=== PATIENT | male | born 1950 | race Caucasian/White ===

== ENCOUNTER 2017-06-19 14:09 | Inpatient (IN) | payer MEDICARE ==
[~2017-06-19] VITALS: Ht 165.1 cm; Wt 51.7 kg
--- NOTE | 2017-06-19 14:09 | NUR ---
[id number] FROM [facility]: SEVERE SOB, HYPOXIA ~ 1 HR DIRECTOR NURSING SERVICE ALOC
[2017-06-19] MEDS ORDERED: methylPREDNISolone SOD SUCC 125 MG/2ML VIAL ONE (14:19)
[2017-06-19] MEDS ORDERED: IPRATROPIUM NEB FS 0.5 MG/2.5 ML AMPUL.NEB ONE ×2 (14:19→14:29)
[2017-06-19] MEDS ORDERED: IV NS 0.9% 1,000 ML BAG IV ONE ×2 (14:30→15:00)
[2017-06-19] MEDS ORDERED: IPRATROPIUM NEB FS 0.5 MG/2.5 ML AMPUL.NEB NEB ONE (14:30)
[2017-06-19] MEDS ORDERED: methylPREDNISolone SOD SUCC 125 MG/2ML VIAL IV ONE (14:30)
[2017-06-19 14:35] LABS: BASOPHILS % (AUTO) 0.2 % (0.0-2.0); HEMATOCRIT 40 % (39-51); HEMOGLOBIN 13.4 g/dL (13.5-17.5); LYMPHOCYTES # (AUTO) 0.1 /CMM (0.8-4.8); LYMPHOCYTES % (AUTO) 2.9 % (20.0-44.0); MEAN CORPUSCULAR HGB CONC 33 g/dl (31.0-36.0); MEAN CORPUSCULAR VOLUME 108 fL (80-96); MONOCYTES # (AUTO) 0.3 /CMM (0.1-1.30); MONOCYTES % (AUTO) 6.8 % (2.0-12.0); NEUTROPHILS # (AUTO) 4.5 /CMM (1.8-8.9); NEUTROPHILS % (AUTO) 90.1 % (43.0-81.0); PLATELET COUNT (AUTO) 226 /CMM (150-450); RDW COEFFICIENT OF VARIATION 12.5 (11.5-15.0); RED BLOOD CELL COUNT(AUTO) 3.75 MIL/uL (4.5-6.0); WHITE BLOOD COUNT (AUTO) 4.9 K/uL (4.3-11.0)
[2017-06-19 14:39] LABS: ABG BASE EXCESS 3.2 mmol/L; ABG PH 7.438 (7.350-7.450); ABG PO2 66.7 mmHg (75.0-100.0); AaDO2 604.3 mmHg; COHb 0.4 % (0.5-1.5); MetHb 0.6 % (0.0-1.5); O2Hb 92.1 % (94.0-97.0); SITE, ABG Left Radial; VENT MODE, BG non rebreather 100% 15L
[2017-06-19 14:48] LABS: INR 1.1 (0.85-1.15)
[2017-06-19 14:49] LABS: CALCIUM, SERUM 8.5 mg/dL (8.5-10.1); CREATININE 0.9 mg/dL (0.6-1.3); POTASSIUM 4.4 mmol/L (3.5-5.1)
[2017-06-19 14:52] LABS: TROPONIN I 0.025 ng/mL (0.00-0.056)
[2017-06-19 14:59] LABS: APPEARANCE,URINE Clear (CLEAR); BILIRUBIN,URINE Negative (NEGATIVE); BLOOD, URINE Negative Ery/uL (NEGATIVE); COLOR,URINE Yellow (YELLOW); KETONES,URINE Negative (NEGATIVE); LEUKOCYTE ESTERASE ,URINE Negative (NEGATIVE); NITRITE, URINE Negative (NEGATIVE); PH,URINE 8.5 (5.0-8.0); PROTEIN,URINE 30 mg/dl (NEGATIVE); UGLUCOSE Negative (NEGATIVE)
[2017-06-19] MEDS ORDERED: VANCOMYCIN 1 GM in IV D5W 250 ML IV ONE (15:00)
[2017-06-19] MEDS: CEFEPIME 1 GM in IV D5W 50 ML IV ONE (15:00)
[2017-06-19 15:01] LABS: ALBUMIN 2.7 g/dL (3.4-5.0); BILIRUBIN,DIRECT 0.2 mg/dL (0.0-0.2); BILIRUBIN,TOTAL 0.6 mg/dL (0.2-1.0); TOTAL PROTEIN, SERUM 6.9 g/dL (6.4-8.2)
[2017-06-19 15:07] LABS: BACTERIA,URINE None seen /HPF (None Seen); SQUAMOUS EPITHELIAL CELL,UR Few /HPF (None Seen)
[2017-06-19] MEDS ORDERED: ONDA4TAB5 GT (15:09)
[2017-06-19] MEDS ORDERED: LIDO30AD10 TP (15:09)
[2017-06-19] MEDS ORDERED: ZOLP5TAB2 GT (15:09)
[2017-06-19] MEDS ORDERED: SUMA100T16 PO (15:09)
[2017-06-19] MEDS ORDERED: METH10TA4 GT (15:09)
[2017-06-19] MEDS ORDERED: LEVO75TA7 GT (15:09)
[2017-06-19] MEDS ORDERED: LEVA0.6320 IH (15:09)
[2017-06-19] MEDS ORDERED: AZEL137S7 BNOSTRILS (15:09)
[2017-06-19] MEDS ORDERED: DOCU-141 GT (15:09)
[2017-06-19] MEDS ORDERED: SCOP1PAT17 TD (15:09)
[2017-06-19] MEDS ORDERED: MAGN400O6 GT (15:09)
[2017-06-19] MEDS ORDERED: NYST5ORA PO (15:09)
[2017-06-19] MEDS ORDERED: ACET-868 GT (15:09)
[2017-06-19] MEDS ORDERED: CLON0.1T PO (15:09)
[2017-06-19] MEDS ORDERED: FENT1PAT4 TD (15:09)
[2017-06-19] MEDS ORDERED: BISA10SU8 RC (15:09)
[2017-06-19] MEDS ORDERED: NA P133E RC (15:09)
[2017-06-19] MEDS ORDERED: FLUT16SP BNOSTRILS (15:09)
[2017-06-19] MEDS ORDERED: VALS80TA2 GT (15:09)
[2017-06-19] MEDS ORDERED: LEVO88TA5 GT (15:09)
--- NOTE | 2017-06-19 15:11 | NUR ---
DR ROBERTS ON THE PHONE WITH DR MIKEY ERWIN, PATIENT'S PCP.
[2017-06-19 15:42] LABS: NEUTROPHILS % (MANUAL) 39 (42-76)
[2017-06-19 15:43] LABS: BAND % (MANUAL) 45 % (0.0-5.0); LYMPHOCYTES % (MANUAL) 2 % (16-48); MONOCYTES % (MANUAL) 14 % (0-11.0)
--- NOTE | 2017-06-19 15:43 | NUR ---
[facility] BED 115-1, DIAGNOSED WITH ACUTE RESPIRATORY FAILURE. [facility] IS ACCEPTING PHYSICIAN.
--- NOTE | 2017-06-19 16:06 | NUR ---
GAVE REPORT TO NAHEED RN [facility] ROOM 115 DR PECK ADMITTING TRANSFER VIA ACLS PROTOCOL
[2017-06-19 16:30] VITALS: BP 84/60
--- NOTE | 2017-06-19 16:30 | NUR ---
[facility] RN NOTE: RECEIVED PATIENT TO ROOM 115-1 AND REPORT WAS GIVEN BY MORENITA SALAS RN. PATIENT WAS ASLEEP, BUT WAS ABLE TO OPEN HIS EYES. ON NONREBREATHER MASK O2 @15L/MIN AND NOTED TACHYPNEIC. COMPLETE BODY ASSESSMENT DONE. AFEBRILE. SKIN IS INTACT. ON CRIMINAL JUSTICE PROFESSOR, SR HR= 91. NOTED W/ GT ON THE (L) SIDE OF THE ABDOMEN AND A MID-ABDOMINAL HERNIA. (R) AC 18G NOTED PATENT AND INTACT. HOB ELEVATED. BED LOCKED AND ALARMED AT ALL TIMES. CALL LIGHT WITHIN REACH. DR. PECK AWARE OF THE PATIENT'S ADMISSION TO THE UNIT AND AWAITING FOR HIS ORDERS.
[2017-06-19] MEDS: IV D5/ 0.9% NACL 1,000 ML IV PRN (16:58)
[2017-06-19] MEDS ORDERED: FEE PK DOSING 1 MIN EA MC ONE (16:58)
[2017-06-19] MEDS ORDERED: ONDANSETRON HCL/PF 4 MG/2 ML VIAL IVP PRN (17:00)
[2017-06-19] MEDS ORDERED: ACETAMINOPHEN 650 MG/SUPP.RECT RC PRN (17:00)
[2017-06-19] MEDS ORDERED: IPRATROPIUM NEB FS 0.5 MG/2.5 ML AMPUL.NEB NEB PRN (17:00)
[2017-06-19] MEDS ORDERED: LEVALBUTEROL HCL NEB 1.25 MG/0.5 ML VIAL.NEB IH PRN (17:00)
--- NOTE | 2017-06-19 17:00 | NUR ---
RAD[facility] RN NOTE: TROY CESAR CAME AND VISITED THE PATIENT AND HE WAS NOTED W/ INCREASED RESTLESNESS. SUCTIONED THE PATIENT'S MOUTH AND DR. PECK WAS PRESENT AT THE BEDSIDE. W/ NEW ORDERS, NOTED AND CARRIED OUT.
[2017-06-19] MEDS: ENOXAPARIN SODIUM 40 MG/0.4 ML DISP.SYRIN SQ SCH (17:25)
[2017-06-19] MEDS ORDERED: MAGNESIUM HYDROXIDE 30 ML UDC GT PRN (17:30)
[2017-06-19] MEDS ORDERED: SUMATRIPTAN SUCCINATE 100 MG TABLET PO PRN (17:30)
[2017-06-19] MEDS ORDERED: BISACODYL SUPP (10 MG) 10 MG/SUPP.RECT SUPP.RECT RC PRN (17:30)
[2017-06-19] MEDS ORDERED: ZOLPIDEM TARTRATE 5 MG TABLET GT SCH (17:30)
[2017-06-19] MEDS ORDERED: CLONIDINE HCL 0.1 MG TABLET PO PRN (17:30)
[2017-06-19] MEDS ORDERED: NA PHOS,M-B/NA PHOS,DI-BA 1 EA ENEMA RC PRN (17:30)
[2017-06-19] MEDS: MORPHINE SULFATE INJ 4 MG/ML DISP.SYRIN IV PRN (17:49)
[2017-06-19] MEDS ORDERED: LIDOCAINE 5% (PATCH) 1 EA PATCH TP PRN (18:00)
[2017-06-19] MEDS: VALSARTAN 80 MG TABLET GT SCH (18:30)
[2017-06-19] MEDS: LEVOTHYROXINE SODIUM 75 MCG TABLET GT SCH (18:32)
[2017-06-19] MEDS: DOCUSATE SODIUM 100 MG CAPSULE PO SCH (18:32)
[2017-06-19] MEDS: PIPERACILLIN /TAZOBACTAM 3.375 G in IV D5W 100 ML IV SCH (18:40)
[2017-06-19] MEDS: AZELASTINE NASAL SPRAY 30 ML BOTTLE NS SCH (18:41)
[2017-06-19] MEDS: IPRATROPIUM NEB FS 0.5 MG/2.5 ML AMPUL.NEB NEB SCH (19:30)
[2017-06-19] MEDS: LEVALBUTEROL HCL NEB 1.25 MG/0.5 ML VIAL.NEB IH SCH (19:30)
--- NOTE | 2017-06-19 19:45 | NUR ---
[facility] RN NOTE: PATIENT IN BED, ASLEEP AND ABLE TO AROUSED W/ TACTILE STIMULI AND WHEN CALLING HIS NAME. NOT ON ANY FORM OF DISTRESS. REPORT TO BE GIVEN W/ PM SHIFT NURSE FOR CONTINUITY OF CARE.
[2017-06-19 20:00] VITALS: BP 89/55
--- NOTE | 2017-06-19 20:00 | NUR ---
[facility] RN INITIAL NOTE PT RECEIVED LETHARGIC BUT AROUSABLE TO NAME AND OPENS EYES. ON NON-REBREATHER 15LPM AND SATURATING 90%. BREATHING UNLABORED. NOTED WITH AUDIBLE CRACKLES AND CRACKLES IN AUSCULTATION. SUCTIONED PT WITH TREVON. HOB ELEVATED AND ON ASPIRATION PRECAUTIONS. TELE-SINUS RHYTHM 90'S. BP 89/55, 85/50, 80/53. LEFT MESSAGE TO DR. PECK AND AWAITING CALL BACK. IV CLEAN AND DRY WITH FLUIDS INFUSING. CALL LIGHT WITHIN REACH. WILL CONTINUE TO MONITOR.
--- NOTE | 2017-06-19 20:20 | NUR ---
[facility] RN NOTE SPOKE WITH DR PECK WITH ORDERS TO START 1L NS BOLUS AND STAT ABG. ORDERS- IF SBP DOES NOT IMPROVE ABOVE 85 OR PT IS HYPERCAPNEIC WITH INCREASED CO2, SEND TO ICU AND START LEVOPHED. WILL CONTINUE TO MONITOR.
[2017-06-19] MEDS ORDERED: IV NS 0.9% 1,000 ML IV ONE (20:30)
[2017-06-19 20:54] LABS: ABG BASE EXCESS -0.7 mmol/L; ABG OXYGEN SATURATION 92.9 % (92.0-98.5); ABG PCO2 41.2 mmHg (35.0-45.0); ABG PH 7.388 (7.350-7.450); ABG PO2 69.5 mmHg (75.0-100.0); AaDO2 602.3 mmHg; COHb 0.3 % (0.5-1.5); MetHb 0.7 % (0.0-1.5); SITE, ABG Right Radial; VENT MODE, BG NRB
--- NOTE | 2017-06-19 20:59 | NUR ---
[facility] RN NOTE ABG RESULTS PH 7.388, CO2 41.2, O2 69.5, HCO3 24.3. DR. PECK AWARE WITH NO NEW ORDER AT THIS TIME.
[2017-06-19] MEDS: METHYLPHENIDATE HCL (10MG) 10 MG TABLET GT SCH (21:00)
[2017-06-19] MEDS ORDERED: ZOLPIDEM TARTRATE 5 MG TABLET GT PRN (22:00)
--- NOTE | 2017-06-19 22:30 | NUR ---
[facility] RN NOTE PT REFUSING TO GO TO ICU AND DOES NOT WANT BIPAP. SATURATING 88-92% ON NONREBREATHER. BP 80/56. PT WROTE ON PAPER HE DOES NOT WANT ANY TREATMENT. PT ALERT AND ABLE TO MAKE HIS OWN DECISIONS. SPOKE WITH NIECE AND FRIENDS ON HIS LIST OF NAMES AND THEY SAID THEY SUPPORT WHATEVER DECISIONS THE PT MAKES. SPOKE WITH DR. PECK WITH ORDERS TO MAKE PT DNR/DNI AND KEEP HIM IN [facility]. WILL CONTINUE TO MONITOR.
--- NOTE | 2017-06-19 22:38 | NUR ---
RN SPOKE TO ADDISON [phone] AND OSMIN [phone] FAMILY MEMBERS REGARDING PT'S CURRENT HEALTH CONDITION AND PT'S WISHES FOR DNR/DNI, FAMILY AWARE AND VERBALIZING UNDERSTANDING, FAMILY VERBALIZED TO GO BY PT'S WISHES. LEFT MESSAGE TO ARSENIO [phone].
[2017-06-20] VITALS: BP 108/76
[2017-06-20] MEDS: NYSTATIN (PYXIS) 500,000 UNIT/5 ML ORAL.SUSP PO SCH ×5 (00:27→20:19)
[2017-06-20] MEDS: PIPERACILLIN /TAZOBACTAM 3.375 G in IV D5W 100 ML IV SCH ×5 (00:27→23:12)
[2017-06-20] MEDS: METHYLPHENIDATE HCL (10MG) 10 MG TABLET GT SCH (00:31)
[2017-06-20] MEDS: IPRATROPIUM NEB FS 0.5 MG/2.5 ML AMPUL.NEB NEB SCH ×4 (01:30→19:30)
[2017-06-20] MEDS: LEVALBUTEROL HCL NEB 1.25 MG/0.5 ML VIAL.NEB IH SCH ×4 (01:30→19:30)
[2017-06-20 04:00] VITALS: BP 131/89
[2017-06-20] MEDS: VANCOMYCIN 1 GM in IV D5W 250 ML IV SCH ×2 (04:33→14:51)
--- NOTE | 2017-06-20 07:10 | NUR ---
RN INITIAL NOTES: REC'D PT ASLEEP ON BED, EASILY AROUSABLE, A/O X 3, SPEECH IS GARBLED. ON NRB AT 15LPM, SATING AT 97%. ON TELEMONITOR, SR. HAS R AC G18 PL W/ D5NS X 75 CC/HR INFUSING WELL. HAS FC PATENT & INTACT DRAINING TO ADEQUATE URINE OUTPUT. HAS GT, CLAMPED (FOR MEDS ONLY AT THIS TIME PER REPORT), FLUSHING WELL. PT IS REFUSING BLOOD DRAW EXPLAINED RISK & BENEFITS BUT STILL REFUSED, WILL TRY LATER. PROVIDED COMFORT & SAFETY MEASURES. BED KEPT LOW & IN LOCKED POS. CALL LIGHT PLACED W/IN REACH. WILL CONTINUE TO MONITOR & ATTEND PT NEEDS.
--- NOTE | 2017-06-20 07:30 | NUR ---
[facility] RN CLOSING NOTE NO ACUTE DISTRESS NOTED AT THIS TIME. EASILY AROUSABLE TO NAME AND TOUCH. WROTE ON PAPER HE WISHES TO BE TRANSFERRED TO [facility]. SPOKE WITH DOMINIK (FAMILY/FRIEND) STATING THAT SHE WILL VISIT AT 930 THIS MORNING. ALL NEEDS ATTENDED TO PT. WILL ENDORSE TO NEXT SHIFT FOR CONTINUITY OF CARE.
[2017-06-20 08:00] VITALS: BP 101/71
[2017-06-20] MEDS: VALSARTAN 80 MG TABLET GT SCH (08:10)
[2017-06-20] MEDS: DOCUSATE SODIUM 100 MG CAPSULE PO SCH (08:10)
[2017-06-20] MEDS: PANTOPRAZOLE 40 MG VIAL IV SCH (08:10)
[2017-06-20] MEDS: LEVOTHYROXINE SODIUM 75 MCG TABLET GT SCH (08:10)
[2017-06-20] MEDS: FLUTICASONE PROPIONATE 16 GM BOTTLE NS SCH (08:13)
[2017-06-20] MEDS: AZELASTINE NASAL SPRAY 30 ML BOTTLE NS SCH (08:14)
[2017-06-20] MEDS ORDERED: METHYLPHENIDATE HCL (10MG) 10 MG TABLET GT SCH (09:00)
--- NOTE | 2017-06-20 09:00 | NUR ---
RN NOTES: TISH SIMMONS CALLED, INFORMED HER THAT PT REFUSING BLOOD DRAW, TISH TALKED TO THE PT OVER THE PHONE TO TRY CONVINCE HIM W/ THE LABDRAW. ELECTRIC STOVE MECHANIC TRIED TO GET BLOOD SAMPLE HOWEVER PT STILL REFUSING. WILL INFORM THE MD.
--- NOTE | 2017-06-20 10:07 | NUR ---
RN NOTES: PT SEEN & EXAMINED BY DR. PECK. INFORMED THAT BMP WAS NOT DRAWN TODAY BECAUSE PT KEEP ON REFUSING. PER DR. PECK, NO NEED TO TRANSFER OUT PT TO [facility] AT THIS TIME. IF PT OR FAMILY INSIST THEN IT WILL BE AMA. PER , OKAY TO START GTF, ORDERED DIETARY CONSULT.
--- NOTE | 2017-06-20 11:00 | NUR ---
RN NOTES: PT C/O GENERALIZED PAIN 10/27. OFFERED LIDOCAINE PATCH INSTEAD HIS BP IS 91/59. WHEN ABOUT TO BE GIVEN, PT REFUSED HE WANTS FENTANYL PATCH 25 MCG. TROY CESAR AT BEDSIDE. TROY ALSO WANTED TO DO LATERAL TRANSFER TO [facility] UNDER DR. POWERS. TROY SAID SHE WAS ABLE TO TALK W/ DR. POWERS OVER THE PHONE, PER MD HE CAN ACCEPT THE PT IN THEIR HOSPITAL JUST NEED TO ARRANGE FOR TRANSFER. DR. PECK MADE AWARE W/ ORDERS TO REFER PT TO TO FACILITATE LATERAL TRANSFER TO [facility]. PT & TROY UPDATED. Addendum: 06/20/17 at 1245 by ERNIE BAE RN ADDENDUM: KEN GREGORIO MADE AWARE. CN ACCOMPANIED TROY CESAR TO OFFICE.
[2017-06-20] MEDS: IV D5/ 0.9% NACL 1,000 ML IV PRN (11:01)
[2017-06-20 12:00] VITALS: BP 91/59
--- NOTE | 2017-06-20 13:24 | NUR ---
WOUND CARE CONSULT: PT IS ABLE TO ASSIST WITH TURNING AND REPOSITIONING IN BED AND IS CONTINENT AT THIS TIME. PT ABLE TO BOOST HIMSELF UP IN BED AND ABLE TO EASILY RAISE HIS HIPS. BLANCHABLE REDNESS NOTED TO BUTTOCKS. ALL SKIN PROTECTION MEASURES IN PLACE AND DISCUSSED WITH NURSING STAFF. PT ON PRESSURE REDISTRIBUTION MATTRESS. WILL SEE PRN. VERDUZCO IN AGREEMENT WITH PLAN OF CARE. Addendum: 06/20/17 at 1326 by LOUIS STRICKLAND WNDNU Amended: Links added.
[2017-06-20] MEDS ORDERED: FENTANYL TD PATCH (25 MCG/HR) 25 MCG/HR PATCH.TD72 TD SCH (15:15)
[2017-06-20] MEDS ORDERED: FENTANYL TD PATCH (25 MCG/HR) 25 MCG/HR PATCH.TD72 TD PRN (15:22)
[2017-06-20 16:00] VITALS: BP 103/80
--- NOTE | 2017-06-20 16:30 | NUR ---
RN NOTES: SPOKE W/ CM DARLINE STATED THAT PT'S DOCUMENT ALREADY FORWARDED TO [facility], AWAITING FOR THEIR RESPONSE. ARSENIO (NIECE) CALLED & INFORMED HER.
--- NOTE | 2017-06-20 18:38 | NUR ---
RN NOTES: PT REFERRED TO DR. PECK IF TF FIBERSOURCE X 30 CC/HR CAN BE STARTED FOR NOW (CHIEF SECURITY AND SAFETY OFFICER UNABLE TO ASSESS PT TODAY). PT C/O THAT HE IS HUNGRY. AGREED.
--- NOTE | 2017-06-20 18:45 | NUR ---
RN CLOSING NOTES: NO ACUTE CHANGES HAPPENED W/IN SHIFT. PT TOLERATED NC AT 3LPM, SATING >90%. ON TELEMONITOR, STILL SR. NEW IV LINE INSERTED ON R HAND G22 PL W/ D5NS X 75 CC/HR INFUSING WELL. FC KEPT PATENT & INTACT. GT KEPT PATENT & INTACT, TO START TF. KEPT WELL RESTED. NEEDS ATTENDED. BED KEPT LOW & IN LOCKED POS. CALL LIGHT PLACED W/IN REACH. WILL ENDORSE TO PM RN FOR MARIE. PT FOR POSS [facility] PER THEIR REQUEST.
[2017-06-20] MEDS ORDERED: FIBERSOURCE HN 1,000 ML BOTTLE GT PRN (19:00)
--- NOTE | 2017-06-20 19:30 | NUR ---
SUPERVISOR NEWSPAPER DELIVERIES INITIAL NOTE PT RECEIVED AWAKE IN BED. A/O X3 AND ABLE TO MAKE SOME NEEDS KNOWN ALTHOUGH NOTED WITH DIFFICULTY SPEAKING. ON 3L OF O2 AND SATURATING WELL. BREATHING UNLABORED. IV IN PLACE AND FLUSHING WELL WITH FLUIDS INFUSING. URBAN CATHETER IN PLACE AND DRAINING BY GRAVITY. GT SITE DRY AND FLUSHING WELL. ON ASPIRATION PRECAUTIONS. CALL LIGHT WITHIN REACH. WILL MONITOR.
[2017-06-20 20:00] VITALS: BP 148/91
[2017-06-20] MEDS: MORPHINE SULFATE INJ 4 MG/ML DISP.SYRIN IV PRN (20:19)
[2017-06-20] MEDS: ENOXAPARIN SODIUM 40 MG/0.4 ML DISP.SYRIN SQ SCH (20:21)
[2017-06-21] VITALS (8 sets, daily range): BP systolic 63–157; BP diastolic 30–106
[2017-06-21] MEDS: LEVALBUTEROL HCL NEB 1.25 MG/0.5 ML VIAL.NEB IH SCH ×4 (02:19→20:37)
[2017-06-21] MEDS: IPRATROPIUM NEB FS 0.5 MG/2.5 ML AMPUL.NEB NEB SCH ×4 (02:19→20:37)
[2017-06-21] MEDS: VANCOMYCIN 1 GM in IV D5W 250 ML IV SCH (03:11)
[2017-06-21] MEDS: IV D5/ 0.9% NACL 1,000 ML IV PRN (05:04)
[2017-06-21] MEDS: PIPERACILLIN /TAZOBACTAM 3.375 G in IV D5W 100 ML IV SCH ×3 (05:05→17:24)
[2017-06-21 06:46] LABS: HEMATOCRIT 38 % (39-51); HEMOGLOBIN 13.1 g/dL (13.5-17.5); LYMPHOCYTES # (AUTO) 0.3 /CMM (0.8-4.8); LYMPHOCYTES % (AUTO) 2.2 % (20.0-44.0); MEAN CORPUSCULAR HGB CONC 35 g/dl (31.0-36.0); MEAN CORPUSCULAR VOLUME 109 fL (80-96); MONOCYTES # (AUTO) 0.3 /CMM (0.1-1.30); MONOCYTES % (AUTO) 2.3 % (2.0-12.0); NEUTROPHILS # (AUTO) 12.9 /CMM (1.8-8.9); NEUTROPHILS % (AUTO) 95.5 % (43.0-81.0); PLATELET COUNT (AUTO) 145 /CMM (150-450); RDW COEFFICIENT OF VARIATION 13.7 (11.5-15.0); RED BLOOD CELL COUNT(AUTO) 3.45 MIL/uL (4.5-6.0); WHITE BLOOD COUNT (AUTO) 13.5 K/uL (4.3-11.0)
--- NOTE | 2017-06-21 06:47 | NUR ---
DESIGN MAKER CLOSING NOTE PT REMAINED STABLE DURING SHIFT. NO ACUTE DISTRESS NOTED. ALL NEEDS ATTENDED TO PROMPTLY. KEPT CLEAN AND DRY. GT FEEDING WELL TOLERATED WITHOUT RESIDUALS NOTED. CALL LIGHT WITHIN REACH. WILL ENDORSE TO NEXT SHIFT FOR CONTINUITY OF CARE.
[2017-06-21 06:52] LABS: CALCIUM, SERUM 8.4 mg/dL (8.5-10.1); CREATININE 0.8 mg/dL (0.6-1.3); POTASSIUM 3.5 mmol/L (3.5-5.1)
--- NOTE | 2017-06-21 07:10 | NUR ---
RN INITIAL NOTES: REC'D PT ASLEEP ON BED, EASILY AROUSABLE, A/O X 3, SPEECH IS GARBLED. ON NC AT 3LPM, SATING AT 96%. ON TELEMONITOR, SR. HAS R HAND G22 PL W/ D5NS X 75 CC/HR INFUSING WELL. HAS FC PATENT & INTACT DRAINING TO ADEQUATE URINE OUTPUT. HAS GT ON CONT TF FIBERSOURCE X 30 CC/HR. PROVIDED COMFORT & SAFETY MEASURES. BED KEPT LOW & IN LOCKED POS. CALL LIGHT PLACED W/IN REACH. WILL CONTINUE TO MONITOR & ATTEND PT NEEDS.
[2017-06-21] MEDS: DOCUSATE SODIUM 100 MG CAPSULE PO SCH (08:05)
[2017-06-21] MEDS: PANTOPRAZOLE 40 MG VIAL IV SCH (08:05)
[2017-06-21] MEDS: LEVOTHYROXINE SODIUM 75 MCG TABLET GT SCH (08:05)
[2017-06-21] MEDS: NYSTATIN (PYXIS) 500,000 UNIT/5 ML ORAL.SUSP PO SCH ×4 (08:05→21:57)
[2017-06-21] MEDS: FLUTICASONE PROPIONATE 16 GM BOTTLE NS SCH (08:06)
[2017-06-21] MEDS: AZELASTINE NASAL SPRAY 30 ML BOTTLE NS SCH (08:06)
[2017-06-21] MEDS: VALSARTAN 80 MG TABLET GT SCH (08:12)
[2017-06-21 09:25] LABS: BAND % (MANUAL) 17 % (0.0-5.0); LYMPHOCYTES % (MANUAL) 1 % (16-48); MONOCYTES % (MANUAL) 3 % (0-11.0); NEUTROPHILS % (MANUAL) 79 (42-76)
--- NOTE | 2017-06-21 10:30 | NUR ---
RN NOTES: RD RECOMMENDATION: INCREASE GTF TO 50 CC/HR.
--- NOTE | 2017-06-21 12:00 | NUR ---
RN NOTES: PT SEEN & EXAMINED BY DR. PECK W/ ORDERS MAY DC CURRENT IVF.
[2017-06-21] MEDS ORDERED: FIBERSOURCE HN 1,000 ML BOTTLE GT PRN (14:30)
--- NOTE | 2017-06-21 17:00 | NUR ---
RN NOTES: FOLLOWED UP MADE W/ CM DARLINE RE: POSSIBLE LATERAL TRANSFER, STILL WAITING.
--- NOTE | 2017-06-21 18:41 | NUR ---
RN CLOSING NOTES: NO ACUTE CHANGES HAPPENED W/IN SHIFT. PT TOLERATED NC AT 3LPM, SATING >90%. ON TELEMONITOR, STILL SR. R HAND G22 SL KEPT PATENT & INTACT W/ NO S/SX OF INFECTION/INFILTRATION NOTED. FC KEPT PATENT & INTACT. TOLERATED GTF FIBERSOURCE X 50 CC/HR. KEPT WELL RESTED. NEEDS ATTENDED. BED KEPT LOW & IN LOCKED POS. CALL LIGHT PLACED W/IN REACH. WILL ENDORSE TO PM RN FOR MARIE.
--- NOTE | 2017-06-21 20:00 | NUR ---
RN NOTE RECEIVED PATIENT IN THE BED ALERT/ORIENTED 3, TROY CESAR IS BY BEDSIDE, BP LOW, 63/30, IMMIDIATELY CALLED DR GAIL JENSEN, NEW ORDER WAS GIVEN AND CARRIED OUT
[2017-06-21] MEDS ORDERED: IV NS 0.9% 500 ML BAG IV ONE (20:30)
[2017-06-21] MEDS ORDERED: IV NS 0.9% 1,000 ML IV PRN (21:00)
[2017-06-21] MEDS: ENOXAPARIN SODIUM 40 MG/0.4 ML DISP.SYRIN SQ SCH (21:00)
[2017-06-21] MEDS ORDERED: IV NS 0.9% 1,000 ML BAG IV PRN (21:00)
--- NOTE | 2017-06-21 21:00 | NUR ---
RN NOTE BP 112/78, PATIENT IS STABLE
--- NOTE | 2017-06-21 21:30 | NUR ---
RN NOTE BP IMPROVED, PATIENT IS STABLE
[2017-06-22] VITALS: BP 88/54
[2017-06-22 00:04] VITALS: BP 119/84
[2017-06-22] MEDS: PIPERACILLIN /TAZOBACTAM 3.375 G in IV D5W 100 ML IV SCH ×3 (00:05→12:14)
[2017-06-22] MEDS: LEVALBUTEROL HCL NEB 1.25 MG/0.5 ML VIAL.NEB IH SCH ×3 (01:45→13:38)
[2017-06-22] MEDS: IPRATROPIUM NEB FS 0.5 MG/2.5 ML AMPUL.NEB NEB SCH ×3 (01:45→13:38)
[2017-06-22 04:00] VITALS: BP 119/84
[2017-06-22] MEDS: VANCOMYCIN 0.75 GM in IV D5W 250 ML IV SCH ×2 (06:59→17:43)
--- NOTE | 2017-06-22 07:30 | NUR ---
REYNALDO AM NOTES: REC'D PT ASLEEP ON BED, EASILY AROUSABLE, A/O X 3, SPEECH IS GARBLED. ON NC AT 3LPM, NOT IN ANY DISTRESS, ON TELEMONITOR, SR HR 85. DENIES PAIN OR CHEST DISCOMFORT, R HAND G22 W/ NS X 75 CC/HR INFUSING WELL. SITE CLEAR. HAS FC PATENT & INTACT DRAINING TO ADEQUATE URINE OUTPUT. HAS GT ON CONT TF FIBERSOURCE X 50 CC/HR. SEE NURSING FLOWSHEET FOR SKIN ISSUES. BED KEPT LOW & IN LOCKED POS. CALL LIGHT PLACED W/IN REACH. WILL CONTINUE TO MONITOR & ATTEND PT NEEDS. Addendum: 06/22/17 at 1937 by BOLIVAR MILLER RN GT - CHECKED FOR PLACEMENT 0 RESIDUAL
[2017-06-22 08:00] VITALS: BP 141/101
[2017-06-22 08:31] LABS: EOSINOPHILS % (AUTO) 0.2 % (0.0-6.0); HEMATOCRIT 34 % (39-51); HEMOGLOBIN 11.7 g/dL (13.5-17.5); LYMPHOCYTES # (AUTO) 0.5 /CMM (0.8-4.8); LYMPHOCYTES % (AUTO) 6.3 % (20.0-44.0); MEAN CORPUSCULAR HGB CONC 34 g/dl (31.0-36.0); MEAN CORPUSCULAR VOLUME 109 fL (80-96); MONOCYTES # (AUTO) 0.3 /CMM (0.1-1.30); MONOCYTES % (AUTO) 3.3 % (2.0-12.0); NEUTROPHILS # (AUTO) 7.4 /CMM (1.8-8.9); NEUTROPHILS % (AUTO) 90.2 % (43.0-81.0); PLATELET COUNT (AUTO) 128 /CMM (150-450); RDW COEFFICIENT OF VARIATION 13.9 (11.5-15.0); RED BLOOD CELL COUNT(AUTO) 3.14 MIL/uL (4.5-6.0); WHITE BLOOD COUNT (AUTO) 8.3 K/uL (4.3-11.0)
[2017-06-22 09:00] LABS: CALCIUM, SERUM 8.2 mg/dL (8.5-10.1); CREATININE 0.8 mg/dL (0.6-1.3); MAGNESIUM 1.9 mg/dL (1.8-2.4); POTASSIUM 3.6 mmol/L (3.5-5.1)
[2017-06-22] MEDS: DOCUSATE SODIUM 100 MG CAPSULE PO SCH (09:02)
[2017-06-22] MEDS: PANTOPRAZOLE 40 MG VIAL IV SCH (09:02)
[2017-06-22] MEDS: NYSTATIN (PYXIS) 500,000 UNIT/5 ML ORAL.SUSP PO SCH ×3 (09:02→17:42)
[2017-06-22] MEDS: VALSARTAN 80 MG TABLET GT SCH (09:02)
[2017-06-22] MEDS: LEVOTHYROXINE SODIUM 75 MCG TABLET GT SCH (09:02)
[2017-06-22] MEDS: AZELASTINE NASAL SPRAY 30 ML BOTTLE NS SCH (09:03)
[2017-06-22] MEDS: FLUTICASONE PROPIONATE 16 GM BOTTLE NS SCH (09:03)
--- NOTE | 2017-06-22 09:30 | NUR ---
RN NOTES ADMINISTERED DUE MEDS
[2017-06-22 10:06] LABS: BAND % (MANUAL) 18 % (0.0-5.0); LYMPHOCYTES % (MANUAL) 4 % (16-48); MONOCYTES % (MANUAL) 4 % (0-11.0); NEUTROPHILS % (MANUAL) 74 (42-76)
--- NOTE | 2017-06-22 10:25 | NUR ---
RN NOTES DR. PECK AWARE PATIENT DOES NOT WANT CONTINOUS GT FEEDING AND WANTS BOLUS ONLY. NO NEW ORDERS.
[2017-06-22 12:00] VITALS: BP 118/77
--- NOTE | 2017-06-22 12:14 | NUR ---
RN NOTES EMMA IV. STARTED
[2017-06-22 16:00] VITALS: BP 101/77
--- NOTE | 2017-06-22 17:05 | NUR ---
MS RN NOTES REPORT GIVEN TO ALICIA JACOBS AT FACILITY.
--- NOTE | 2017-06-22 17:43 | NUR ---
MS RN NOTES STARTED VANCO IV.
--- NOTE | 2017-06-22 19:15 | NUR ---
CRUSHER AND BLENDER OPERATOR NOTES PT DISCHARGED TO [facility] IN [place] CONDITION PER MD. PROVIDED DC INSTRUCTIONS, MED RECON LIST AND HEALTH TEACHINGS. IV ACCESS TO RT HAND REMOVED. NO BLEEDING DRESSING IN PLACE. URBAN CATH IN PLACE WITH 2500 ML OUTPUT. GT IN PL[address]. PATIENT REFUSE TO HAVE PHOTOS OF SKIN ISSUES TAKEN, CRIES AND GETS DEPRESSED AND STATES HE JUST WANT TO GO, AND WHATS THE USE. ALL BELONGINGS CHECKED AND RETURNED. ALL PAPER WORKS SIGNED. PICKED UP BY AMBULANCE CREW TO TRANSPORT TO FACILITY. TROY CESAR AWARE OF TRASNFER.
== END 2017-06-22 19:15 | DRG 871 ==
LOC: ER 14:12 → TELE-TD 16:28 → TELE1 06-20 08:45
PROVIDERS: ADMIT Legal Medicine; ATTEND Legal Medicine
DX: A41.9 Sepsis, unspecified organism (principal); J69.0 Pneumonitis due to inhalation of food and vomit; J96.01 Acute respiratory failure with hypoxia; J44.1 Chronic obstructive pulmonary disease with (acute) exacerbation; J44.0 Chronic obstructive pulmonary disease with (acute) lower respiratory infection; G89.4 Chronic pain syndrome; Z88.8 Allergy status to other drugs, medicaments and biological substances; Z79.899 Other long term (current) drug therapy; Z85.89 Personal history of malignant neoplasm of other organs and systems; I10 Essential (primary) hypertension
CPT/HCPCS: 36415; 36600; 71045-TC; 80048-TC; 80076-TC; 80202-TC; 81000-TC; 83605-TC; 83735-TC; 83880; 84484-TC; 85025-TC; 85730-TC; 87040-TC; 87070-TC; 87081-TC; 87086-TC; 94799-TC; A4606; C9113; J0692; J1650; J2270; J2543; J2930; J3370; J7030; J7040; J7042; J7060; Z7610

== ENCOUNTER 2017-12-19 22:47 | Inpatient (IN) | payer MEDICARE ==
[~2017-12-19] VITALS: Ht 149.9 cm; Wt 32.7 kg
[~2017-12-19 22:47] MED LIST: ACET-868 GT; AZEL137S7 BNOSTRILS; BISA10SU8 RC; CLON0.1T PO; DOCU-141 GT; FENT1PAT4 TD; FLUT16SP BNOSTRILS; LEVA0.6320 IH; LEVO75TA7 GT; LEVO88TA5 GT; LIDO30AD10 TP; MAGN400O6 GT; METH10TA4 GT; NA P133E RC; NYST5ORA PO; ONDA4TAB5 GT; SCOP1PAT17 TD; SUMA100T16 PO; VALS80TA2 GT; ZOLP5TAB2 GT
[2017-12-20] MEDS ORDERED: CLINDAMYCIN 600 MG in IV D5W 100 ML IV ONE ×2
--- NOTE | 2017-12-20 | NUR ---
pt bibfriend; said that pt has been weak and having falls for the past 3 days. pt denies any trauma, denies syncope. Pt does have gtube placement, currently clamped; gt site looks red in color with discharge. pt is a/ox3, verbal, able to make needs known. no s/s of acute distress or sob noted. seen by
[2017-12-20] MEDS ORDERED: CEFTRIAXONE 1GM BAG (ER ONLY) 50 ML IV ONE ×2 (00:16)
--- NOTE | 2017-12-20 00:17 | NUR ---
pt taken for CT
[2017-12-20] MEDS ORDERED: CLINDAMYCIN 900 MG/6 ML VIAL ONE (00:23)
[2017-12-20 00:39] LABS: APPEARANCE,URINE CLEAR (CLEAR); BILIRUBIN,URINE NEGATIVE (NEGATIVE); BLOOD, URINE NEGATIVE Ery/uL (NEGATIVE); COLOR,URINE YELLOW (YELLOW); KETONES,URINE NEGATIVE (NEGATIVE); LEUKOCYTE ESTERASE ,URINE NEGATIVE (NEGATIVE); NITRITE, URINE NEGATIVE (NEGATIVE); PROTEIN,URINE 1+ mg/dl (NEGATIVE); UGLUCOSE NEGATIVE (NEGATIVE)
[2017-12-20 00:45] LABS: BACTERIA,URINE None seen /HPF (None Seen); RBC,URINE 0-2 /HPF (0-2); SQUAMOUS EPITHELIAL CELL,UR Few /HPF (None Seen)
--- NOTE | 2017-12-20 01:30 | NUR ---
given cleocin 600mg @100ml/hr
[2017-12-20 01:36] LABS: HEMATOCRIT 44 % (39-51); HEMOGLOBIN 13.8 g/dL (13.5-17.5); LYMPHOCYTES # (AUTO) 0.5 /CMM (0.8-4.8); LYMPHOCYTES % (AUTO) 3.1 % (20.0-44.0); MEAN CORPUSCULAR HGB CONC 32 g/dl (31.0-36.0); MEAN CORPUSCULAR VOLUME 111 fL (80-96); MONOCYTES # (AUTO) 0.3 /CMM (0.1-1.30); MONOCYTES % (AUTO) 1.9 % (2.0-12.0); NEUTROPHILS # (AUTO) 14.7 /CMM (1.8-8.9); PLATELET COUNT (AUTO) 204 /CMM (150-450); RDW COEFFICIENT OF VARIATION 15.3 (11.5-15.0); RED BLOOD CELL COUNT(AUTO) 3.95 MIL/uL (4.5-6.0); WHITE BLOOD COUNT (AUTO) 15.4 K/uL (4.3-11.0)
[2017-12-20] MEDS ORDERED: MORPHINE SULFATE INJ 4 MG/ML DISP.SYRIN ONE (01:37)
[2017-12-20] MEDS ORDERED: ONDANSETRON HCL/PF 4 MG/2 ML VIAL ONE (01:37)
[2017-12-20 01:46] LABS: CALCIUM, SERUM 9.2 mg/dL (8.5-10.1); CARBON DIOXIDE 34 mmol/L (21-32); CHLORIDE 98 mmol/L (98-107); CREATININE 0.8 mg/dL (0.6-1.3); GLUCOSE 122 mg/dL (74-106); SODIUM SERUM 136 mmol/L (136-145); UREA NITROGEN, BLOOD 38 mg/dL (7-18)
[2017-12-20 01:50] LABS: INR 1.09 (0.87-1.13)
--- NOTE | 2017-12-20 01:50 | NUR ---
pt c/o generalized pain 11/27. adminsitered zofran 4mg & morphine 4mg per md order.
[2017-12-20 01:53] LABS: ALANINE AMINOTRANSFERASE 9 U/L (12-78); ALBUMIN 2.4 g/dL (3.4-5.0); ALKALINE PHOSPHATASE 70 U/L (46-116); ASPARTATE AMINOTRANSFERASE 24 U/L (15-37); BILIRUBIN,DIRECT 0.2 mg/dL (0.0-0.2); BILIRUBIN,TOTAL 0.5 mg/dL (0.2-1.0); TOTAL PROTEIN, SERUM 8.4 g/dL (6.4-8.2)
[2017-12-20 01:54] LABS: TROPONIN I < 0.017 ng/mL (0.00-0.056)
--- NOTE | 2017-12-20 01:54 | NUR ---
iv access started on Lt Ankle/Foot #20g
[2017-12-20] MEDS ORDERED: MORPHINE SULFATE INJ 2 MG/ML DISP.SYRIN IV ONE (02:00)
[2017-12-20] MEDS ORDERED: ONDANSETRON HCL/PF 4 MG/2 ML VIAL IVP ONE (02:00)
--- NOTE | 2017-12-20 02:29 | NUR ---
Gt side wound cx collected. called lab for cook pickled meat.
[2017-12-20] MEDS ORDERED: IV NS 0.9% 1,000 ML BAG IV ONE ×2 (02:30)
--- NOTE | 2017-12-20 02:30 | NUR ---
administered rocephin 1gm 50ml @100ml/hr. infusing well.
[2017-12-20 02:40] LABS: BAND % (MANUAL) 30 % (0.0-5.0); LYMPHOCYTES % (MANUAL) 6 % (16-48); NEUTROPHILS % (MANUAL) 63 (42-76); REACTIVE LYMPHOCYTES 1 % (0-0)
--- NOTE | 2017-12-20 03:05 | NUR ---
BG accucheck 126. No action needed at this time.
[2017-12-20] MEDS ORDERED: IV NS 0.9% 1,000 ML IV PRN (03:57)
[2017-12-20] MEDS ORDERED: MAG HYDROX/AL HYDROX/SIMETH 30 ML UDC PO PRN (04:00)
[2017-12-20] MEDS ORDERED: ONDANSETRON HCL/PF 4 MG/2 ML VIAL IVP PRN (04:00)
[2017-12-20] MEDS ORDERED: MAGNESIUM HYDROXIDE 30 ML UDC PO PRN (04:00)
[2017-12-20] MEDS ORDERED: MORPHINE SULFATE INJ 2 MG/ML DISP.SYRIN IV PRN (04:00)
[2017-12-20] MEDS ORDERED: Z GUARD REMEDY 2 OZ OINT TP PRN (04:00)
[2017-12-20] MEDS ORDERED: BISACODYL SUPP (10 MG) 10 MG/SUPP.RECT SUPP.RECT RC PRN (04:30)
--- NOTE | 2017-12-20 04:46 | NUR ---
REPORT GIVEN TO 3WEST REYNALDO POWELL. WILL TRANSPORT Pt PER ACLS PROTOCOL.
--- NOTE | 2017-12-20 05:20 | NUR ---
PT WAS RECEIVED AND ARRIVED ON UNIT AT THIS TIME
--- NOTE | 2017-12-20 05:35 | NUR ---
MS ASSISTANT BASEBALL COACH PT WAS RECIEVED IN BED AT LOWEST AND LOCKED POSITION WITH SIDE RAILS UP X2, A/O X3, CURRENTLY ON 3L VIA NC, PT IS ABLE TO AMBULATE WITH ASSIST, SCAB NOTED ON THE TOP RIGHT SIDE OF HEAD THAT IS COVERED BY A BANDAID, LEFT EYE PERIORBITAL BRUISE WAS ALSO NOTED, PT IS CAHECTIC, PT IS ABLE TO TALK BUT HAS GARBLED SPEECH, HAS LEFT ANKLE IV THAT IS PATENT AND INTACT, G-TUBE WAS NOTED ON THE LEFT SIDE OF THE ABDOMEN TO BE SLIGHTLY RED WITH DISCHARGE, PT IS ON TELE MONITOR - NSR WITH PJC 86, SAFETY PRECAUTIONS IN PLACE, WILL MONITOR ACCORDINGLY
[2017-12-20 06:00] VITALS: BP 169/112
--- NOTE | 2017-12-20 07:28 | NUR ---
MS RN CLOSING NOTES PT IN BED AT LOWEST AND LOCKED POSITION WITH SIDE RAILS UP X2, A/O X3, CURRENTLY ON 3L VIA NC, NO S/S OF PAIN OR DISTRESS NOTED, PT HAS LEFT EYE BRUISE AND SCAB ON THE TOP RIGHT OF THEIR HEAD, IV ON THE LEFT ANKLE IS PATENT AND INTACT, SPEECH IS GARBLED BUT ABLE TO COMMUNICATE, PT IS AMBULATORY BUT NEEDS SLIGHT ASSISTANCE, SAFETY PRECAUTIONS IN PLACE, ALL NEEDS ATTENDED TO, WILL ENDORSE TO DAY SHIFT FOR MARIE.
[2017-12-20 07:35] LABS: HEMATOCRIT 43 % (39-51); HEMOGLOBIN 13.6 g/dL (13.5-17.5); LYMPHOCYTES # (AUTO) 0.5 /CMM (0.8-4.8); LYMPHOCYTES % (AUTO) 4.9 % (20.0-44.0); MEAN CORPUSCULAR HGB CONC 32 g/dl (31.0-36.0); MEAN CORPUSCULAR VOLUME 111 fL (80-96); MONOCYTES # (AUTO) 0.3 /CMM (0.1-1.30); MONOCYTES % (AUTO) 2.7 % (2.0-12.0); NEUTROPHILS # (AUTO) 10.1 /CMM (1.8-8.9); NEUTROPHILS % (AUTO) 92.4 % (43.0-81.0); PLATELET COUNT (AUTO) 159 /CMM (150-450); RDW COEFFICIENT OF VARIATION 15.7 (11.5-15.0); RED BLOOD CELL COUNT(AUTO) 3.84 MIL/uL (4.5-6.0); WHITE BLOOD COUNT (AUTO) 10.9 K/uL (4.3-11.0)
[2017-12-20 07:38] LABS: CALCIUM, SERUM 8.9 mg/dL (8.5-10.1); CARBON DIOXIDE 34 mmol/L (21-32); CHLORIDE 100 mmol/L (98-107); CREATININE 0.6 mg/dL (0.6-1.3); GLUCOSE 90 mg/dL (74-106); MAGNESIUM 2.3 mg/dL (1.8-2.4); POTASSIUM 4.4 mmol/L (3.5-5.1); SODIUM SERUM 136 mmol/L (136-145); UREA NITROGEN, BLOOD 33 mg/dL (7-18)
[2017-12-20 07:46] LABS: TROPONIN I < 0.017 ng/mL (0.00-0.056)
[2017-12-20 08:00] VITALS: BP_SYST 118; BP_SYST 119; BP_SYST 158; BP_DIAS 104; BP_DIAS 72; BP_DIAS 91; BP_DIAS 92
--- NOTE | 2017-12-20 08:00 | NUR ---
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
[2017-12-20] MEDS ORDERED: SCOPOLAMINE HBR 1 EA PATCH.TD72 TD SCH (09:00)
[2017-12-20] MEDS ORDERED: FLUTICASONE PROPIONATE 16 GM BOTTLE NS SCH (09:00)
[2017-12-20] MEDS: NYSTATIN (PYXIS) 500,000 UNIT/5 ML ORAL.SUSP PO SCH ×4 (09:49→21:04)
[2017-12-20] MEDS: DOCUSATE SODIUM 100 MG CAPSULE PO SCH (09:49)
[2017-12-20] MEDS: LEVOTHYROXINE SODIUM 75 MCG TABLET GT SCH (09:49)
[2017-12-20] MEDS: AZELASTINE NASAL SPRAY 30 ML BOTTLE NS SCH (10:00)
[2017-12-20] MEDS: IV NS 0.9% 1,000 ML IV PRN ×2 (10:08→17:58)
[2017-12-20] MEDS: HYDROCODONE/APAP 10/325MG 1 EA TABLET PO PRN ×2 (10:16→17:40)
[2017-12-20] MEDS: ALBUTEROL HALF STRENGTH 1.25 MG/3 ML VIAL.NEB NEB SCH ×3 (10:59→20:29)
[2017-12-20] MEDS: IPRATROPIUM NEB FS 0.5 MG/2.5 ML AMPUL.NEB NEB SCH ×3 (10:59→20:30)
[2017-12-20 12:02] LABS: ABG PCO2 53.9 mmHg (35.0-45.0); ABG PH 7.396 (7.350-7.450); ABG PO2 58.6 mmHg (75.0-100.0); AaDO2 77.4 mmHg; COHb 0.5 % (0.5-1.5); MetHb 0.7 % (0.0-1.5); O2Hb 86.9 % (94.0-97.0); SITE, ABG Right Radial; VENT MODE, BG Nasal Cannula
--- NOTE | 2017-12-20 13:01 | NUR ---
PT'S BREATHING TX WAS GIVEN AT 1030.
[2017-12-20] MEDS: JEVITY 1.2 CAL 1,000 ML BOTTLE GT SCH (13:43)
[2017-12-20] MEDS: FENTANYL TD PATCH (25 MCG/HR) 25 MCG/HR PATCH.TD72 TD SCH (14:11)
--- NOTE | 2017-12-20 18:19 | NUR ---
PT RESTING IN BED WITH PAIN MGT EFFECTIVE FOR GEN BODY PAIN.ON O2 AT 3L/MIN VIA N/C.NO SOB.SUCTIONED ORAL SECRETIONS NEEDED.ORAL CARE RENDERED.WITH ONGOING IVF OF NS AT 125 ML/HR INFUSING WELL.DENIES ANY PAIN OR DISTRESS.CALL LIGHT PLACED WITHIN REACH.
[2017-12-20 20:00] VITALS: BP 136/88
[2017-12-21] VITALS: BP 145/79
[2017-12-21] MEDS: HYDROCODONE/APAP 10/325MG 1 EA TABLET PO PRN ×5 (00:01→22:21)
--- NOTE | 2017-12-21 00:01 | NUR ---
OBIEE LEAD DEVELOPER NOTES PAIN MANAGEMENT C/O PAIN ORALLY 8/10 ON PAIN SCALE,NORCO 10/325MG,1 TAB PO GIVEN ORDERED
[2017-12-21] MEDS: IPRATROPIUM NEB FS 0.5 MG/2.5 ML AMPUL.NEB NEB SCH ×4 (01:37→20:27)
[2017-12-21] MEDS: ALBUTEROL HALF STRENGTH 1.25 MG/3 ML VIAL.NEB NEB SCH ×4 (01:37→20:27)
[2017-12-21 04:00] VITALS: BP 130/66
[2017-12-21] MEDS: IV NS 0.9% 1,000 ML IV PRN ×2 (04:31→21:46)
[2017-12-21] MEDS: JEVITY 1.2 CAL 1,000 ML BOTTLE GT SCH ×2 (05:19→22:47)
--- NOTE | 2017-12-21 06:24 | NUR ---
MILLED RICE BROKER NOTES PAIN MANAGEMENT C/O THROAT PAIN 8/10 ON PAIN SCALE,NORCO 10/325MG,1 TA/GT GIVEN ORDERED.
--- NOTE | 2017-12-21 06:42 | NUR ---
MOTOR VEHICLE SALESPERSON NOTES FAIRLY RESTED AT NIGHT,REMAINS ALERT X3.GT FEEDING TOLERATED WELL.NO N/V/D NOTED.PAIN MANAGEMENT EFFECTIVE.CALL LIGHT IN REACH,NEEDS ATTENDED.IN NO ACUTE DISTRESS.WILL ENDORSE TO DAY NURSE FOR MARIE.
--- NOTE | 2017-12-21 06:45 | NUR ---
PER PHARMACY DISTRICT MANAGER,REFUSED BLOOD DRAW THIS MORNING.
--- NOTE | 2017-12-21 08:00 | NUR ---
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 ALONG THE HALLWAY WITH STANDBY ASSIST AND STABLE V/S-TOLERATED WELL.PT TOLERATED WELL CALL LIGHT PLACED WITHIN REACH.WILL MONITOR ACCORDINGLY.
[2017-12-21 08:23] VITALS: BP 148/89
[2017-12-21] MEDS: NYSTATIN (PYXIS) 500,000 UNIT/5 ML ORAL.SUSP PO SCH ×4 (09:43→21:10)
[2017-12-21] MEDS: MULTIVITAMINS,THERAGRAN 1 UDTAB TABLET GT SCH (09:43)
[2017-12-21] MEDS: LEVOTHYROXINE SODIUM 75 MCG TABLET GT SCH (09:43)
[2017-12-21] MEDS: DOCUSATE SODIUM 100 MG CAPSULE PO SCH (09:43)
[2017-12-21] MEDS: AZELASTINE NASAL SPRAY 30 ML BOTTLE NS SCH (09:44)
[2017-12-21] MEDS: FLUTICASONE PROPIONATE 16 GM BOTTLE NS SCH (09:45)
--- NOTE | 2017-12-21 09:53 | NUR ---
PT REFUSED BLOOD LAB DRAW INSPITE OF EXPLAINING ITS RISKS AND BENEFITS.PT INSISTS TO REFUSE.
--- NOTE | 2017-12-21 14:30 | NUR ---
DR ROMO CALLED AND ORDERED TO PUT PT TO NEGATIVE AIRFLOW RESPIRATORY ISOLATION AND COLLECT SPUTUM C/S AND AFB SPECIMEN WHICH WAS SENT TO LAB.
[2017-12-21] MEDS: ACETYLCYSTEINE 10% SOLN 400 MG/4 ML VIAL NEB SCH ×2 (15:30→23:30)
--- NOTE | 2017-12-21 15:35 | NUR ---
JESSENIA STRINGER [facility] CALLED AND REPORTED THAT PT IS POSITIVE OF MRSA NARES.NOTIFIED NATASHA WITH ORDERS FOR BACTROBAN WILLIS AND CARRIED OUT.
[2017-12-21] MEDS: LEVOFLOXACIN (500MG) 500 MG TABLET PO SCH (16:46)
--- NOTE | 2017-12-21 18:20 | NUR ---
TRANSFERRED TO [address] NEGATIVE AIRFLOW RESPIRATORY ISOLATION ROOM IN 101 WITH STABLE V/S AND ALL THE MEDS AND BELONGINGS OF THE PT. Addendum: 12/21/17 at 1831 by FLOWER W[place] RN GAVE REPORT TO REYNALDO MORA OF [facility] UNIT [address] [place] [address].
--- NOTE | 2017-12-21 18:20 | NUR ---
RN NOTES RECEIVED PATIENT FROM [facility], ALERT AND ORIENTED X4, ABLE TO MAKE NEEDS KNOWN BUT SPEECH IS GARBLED. ON NASAL CANNULA WITH 3LPM, BREATHING EVEN AND UNLABORED. VITAL SIGNS FOLLOWS BP AT 156/98, HR AT 91BPM, TEMP AT 98.1, SATURATING AT 93%, SKIN ISSUES NOTED, PHOTOS TAKEN AND FILED ON THE CHART A. REDNESS ON THE SACRAL AREA, B. BRUISES ON THE RIGHT ARM. C. BRUISES ON THE LEFT ARM. IVL ON THE LEFT AC G 22 INTACT AND PATENT ON FLUSHING, WITH NS RUNNING AT 125CC/HR. PATIENT MADE COMFORTABLE AND CLEAN. ORIENTED TO FLOOR. CALL LIGHT PLACED ON EASY REACHED. BED LOW AND LOCKED. ENCOURAGE VERBALIZATION OF FEELINGS AND CONCERN. KEPT ON ROOM OF NEGATIVE PRESSURE.
--- NOTE | 2017-12-21 19:31 | NUR ---
RN NOTES ENDORSED PATIENT FOR CONTINUITY OF CARE. NO ACUTE CHANGES SINCE TRANSFER. ALL IMMEDIATE NURSING NEEDS ATTENDED AND MET. KEEP SAFETY MEASURES IN PLACE. CALL LIGHT WITHIN REACH. KEEP ISOLATION
[2017-12-21 20:00] VITALS: BP 146/88
--- NOTE | 2017-12-21 22:34 | NUR ---
RN NOTES COMPLAINED OF TONGUE PAIN- NORCO 10/325 MG VIA GT GIVEN ORDERED, V/S STABLE
[2017-12-21] MEDS ORDERED: MUPIROCIN OINT 2% 22 GM TUBE ONE (22:45)
[2017-12-21] MEDS: MUPIROCIN OINT 2% 22 GM TUBE SCH (22:48)
[2017-12-22] MEDS: IPRATROPIUM NEB FS 0.5 MG/2.5 ML AMPUL.NEB NEB SCH ×4 (01:28→19:50)
[2017-12-22] MEDS: ALBUTEROL HALF STRENGTH 1.25 MG/3 ML VIAL.NEB NEB SCH ×4 (01:29→19:50)
[2017-12-22] MEDS: HYDROCODONE/APAP 10/325MG 1 EA TABLET PO PRN ×4 (02:02→22:14)
--- NOTE | 2017-12-22 02:26 | NUR ---
RN NOTES COMPLAINED OF PAIN ON HIS TONGUE, NORCO 10/325 MG PO GIVEN ORDERED, V/S STABLE
[2017-12-22 05:00] VITALS: BP 129/88
[2017-12-22] MEDS: IV NS 0.9% 1,000 ML IV PRN (05:11)
--- NOTE | 2017-12-22 06:40 | NUR ---
1ST [employer] SAMPLE OBTAINED ON 12/22/2017 AT 0630.
--- NOTE | 2017-12-22 06:46 | NUR ---
RN NOTES COMPLAINED OF TONGUE PAIN- NORCO 10/325MG PO GIVEN ORDERED, V/S STABLE, MORNING CARE RENDERED, SIDERAILSUPX2, PT. NEEDS ATTENDED
--- NOTE | 2017-12-22 07:00 | NUR ---
Pt aaox4, c/o chronic pain 06/27 generalized. IV patent/intact/running. G-Tube in place intact/patent with redness surrounding tube. Bed locked in low position with side rails up x2. HOB elevated at 35 degrees. Pt with garbled speech as baseline. Pt educated on use of call light/TV. Pt demonstrated teaching.
[2017-12-22] MEDS: JEVITY 1.2 CAL 1,000 ML BOTTLE GT SCH (07:15)
[2017-12-22] MEDS: ACETYLCYSTEINE 10% SOLN 400 MG/4 ML VIAL NEB SCH ×2 (07:29→14:47)
[2017-12-22] MEDS: MULTIVITAMINS,THERAGRAN 1 UDTAB TABLET GT SCH (09:36)
[2017-12-22] MEDS: DOCUSATE SODIUM 100 MG CAPSULE PO SCH (09:36)
[2017-12-22] MEDS: LEVOTHYROXINE SODIUM 75 MCG TABLET GT SCH (09:36)
[2017-12-22] MEDS: NYSTATIN (PYXIS) 500,000 UNIT/5 ML ORAL.SUSP PO SCH ×4 (09:36→21:49)
[2017-12-22] MEDS: MUPIROCIN OINT 2% 22 GM TUBE SCH ×2 (09:38→21:56)
[2017-12-22] MEDS: AZELASTINE NASAL SPRAY 30 ML BOTTLE NS SCH (09:38)
[2017-12-22] MEDS: FLUTICASONE PROPIONATE 16 GM BOTTLE NS SCH (09:40)
--- NOTE | 2017-12-22 12:00 | NUR ---
VSS, pt denies SOB.
[2017-12-22] MEDS: LEVOFLOXACIN (500MG) 500 MG TABLET PO SCH (14:53)
[2017-12-22] MEDS ORDERED: FEE PK DOSING 1 MIN EA MC ONE (15:55)
[2017-12-22] MEDS: VANCOMYCIN 500 MG in IV D5W 100 ML IV SCH (16:47)
[2017-12-22] MEDS: FLUCONAZOLE (100 MG) 100 MG TABLET PO SCH (16:47)
[2017-12-22] MEDS: MORPHINE SULFATE INJ 2 MG/ML DISP.SYRIN IV PRN (16:48)
[2017-12-22 20:00] VITALS: BP 110/78
--- NOTE | 2017-12-22 20:00 | NUR ---
RN INITIAL NOTES RECEIVED PT IN BED A&OX3. BED AT LOWEST AND LOCKED POSITION WITH SIDE RAILS UP X2, A/O X3, CURRENTLY ON 2L VIA NC. G-TUBE ON THE LEFT ABDOMEN-PATENT AND INTACT AND CLAMPED. WITH REDNESS AROUND THE GT SITE. TOLERATING JEVITY 1.2 BOLUS GIVEN EVERY 4 HRS. HOB ELEVATED WITH ASPIRATION PRECAUTIONS AND SAFETY PRECAUTIONS IN PLACE. CALL LIGHT PLACED WITHIN REACH. WILL CONT TO MONITOR.
[2017-12-22] MEDS: ZOLPIDEM TARTRATE 5 MG TABLET PO PRN (22:51)
[2017-12-23] MEDS: ACETYLCYSTEINE 10% SOLN 400 MG/4 ML VIAL NEB SCH ×3 (00:06→23:30)
[2017-12-23] MEDS: MORPHINE SULFATE INJ 2 MG/ML DISP.SYRIN IV PRN ×4 (02:03→23:47)
[2017-12-23] MEDS: ALBUTEROL HALF STRENGTH 1.25 MG/3 ML VIAL.NEB NEB SCH ×4 (02:33→20:16)
[2017-12-23] MEDS: IPRATROPIUM NEB FS 0.5 MG/2.5 ML AMPUL.NEB NEB SCH ×4 (02:33→20:16)
[2017-12-23 04:00] VITALS: BP 167/105
[2017-12-23] MEDS: HYDROCODONE/APAP 10/325MG 1 EA TABLET PO PRN ×4 (04:34→21:56)
[2017-12-23] MEDS: VANCOMYCIN 500 MG in IV D5W 100 ML IV SCH ×2 (04:55→17:00)
--- NOTE | 2017-12-23 06:50 | NUR ---
RN CLOSING NOTES PT IN BED A&OX3. ON O2 2L VIA NC. ISOLATION PRECAUTIONS OBSERVED. ALL NEEDS ATTENDED. ALL DUE MEDS GIVEN. HOB ELEVATED WITH ASPIRATION PRECAUTIONS. ALL SAFETY PRECAUTIONS IN PLACE. BED AT LOWEST AND LOCKED POSITION WITH SIDE RAILS UP X2. CALL LIGHT PLACED WITHIN REACH. INSTRUCTED TO CALL FOR HELP. ENDORSED TO AM NURSE FOR MARIE.
[2017-12-23 08:00] VITALS: BP 137/92
--- NOTE | 2017-12-23 08:04 | NUR ---
MS RN OPENING NOTES RECEIVED REPORT FROM PM NURSE . PT IN BED A&OX3. ON O2 2L VIA NC. HAS G-TUBE FEEDING Q4H, REDNESS AROUND THE GT SITE. ISOLATION PRECAUTIONS IN PLACE FOR MRSA NARES AND TO RULE OUT TB.HOB ELEVATED WITH ASPIRATION PRECAUTIONS AND SAFETY PRECAUTIONS IN PLACE. BED AT LOWEST AND LOCKED POSITION WITH SIDE RAILS UP X2CALL LIGHT PLACED WITHIN REACH. INSTRUCTED TO CALL FOR HELP.WILL CONT TO MONITOR.
--- NOTE | 2017-12-23 08:06 | NUR ---
PT AWAKE ALERT, AND WAS INFORMED TO COUGH ANY SPUTUM SAMPLE IN COLLECTION CONTAINER LEFT AT BEDSIDE, PT REFUSED TO BE SUCTIONED FOR SAMPLE, REYNALDO BELTRAN MADE AWARE LAST NIGHT, RT LOBO
[2017-12-23] MEDS: MULTIVITAMINS,THERAGRAN 1 UDTAB TABLET GT SCH (08:43)
[2017-12-23] MEDS: DOCUSATE SODIUM 100 MG CAPSULE PO SCH (08:43)
[2017-12-23] MEDS: LEVOTHYROXINE SODIUM 75 MCG TABLET GT SCH (08:43)
[2017-12-23] MEDS: NYSTATIN (PYXIS) 500,000 UNIT/5 ML ORAL.SUSP PO SCH ×4 (08:44→21:28)
[2017-12-23] MEDS: FLUCONAZOLE (100 MG) 100 MG TABLET PO SCH (08:44)
[2017-12-23] MEDS: JEVITY 1.2 CAL 1,000 ML BOTTLE GT SCH ×4 (08:48→22:34)
[2017-12-23] MEDS: MUPIROCIN OINT 2% 22 GM TUBE SCH ×2 (08:59→21:29)
[2017-12-23] MEDS: AZELASTINE NASAL SPRAY 30 ML BOTTLE NS SCH (09:00)
--- NOTE | 2017-12-23 09:30 | NUR ---
RT AFB SPUTUM SAMPLE TAKEN VIA NT SUCTION. CHARGE NURSE MORGAN AWARE AND CALLED LAB FOR [facility].
--- NOTE | 2017-12-23 10:00 | NUR ---
MS RN NOTES SEEN BY ,UPDATED ABOUT PATIENT CONDITION AND COLLECTING SECOND SPECIMEN FOR AFB.SEEN BY ALVINO KAUR UPDATED ABOUT PATIENT CONDITION.NO NEW ORDERS AT THIS TIME.
[2017-12-23] MEDS: FLUTICASONE PROPIONATE 16 GM BOTTLE NS SCH (10:16)
[2017-12-23] MEDS: FENTANYL TD PATCH (25 MCG/HR) 25 MCG/HR PATCH.TD72 TD SCH (15:53)
[2017-12-23] MEDS: LEVOFLOXACIN (500MG) 500 MG TABLET PO SCH (15:53)
[2017-12-23 16:00] VITALS: BP 140/93
--- NOTE | 2017-12-23 18:00 | NUR ---
RN NOTES PATIENT REFUSED CLEANING AND CHANGING LINEN AND GOWN AND DO BODY CHECK.
[2017-12-23 18:01] LABS: CALCIUM, SERUM 8.1 mg/dL (8.5-10.1); CREATININE 0.7 mg/dL (0.6-1.3); POTASSIUM 4.1 mmol/L (3.5-5.1)
--- NOTE | 2017-12-23 19:00 | NUR ---
MS RN OPENING NOTE RECEIVE PATIENT AWAKE IN BED, A/O X 3, NO SOB OR DISTRESS NOTED, CALL LIGHT WITHIN REACH. SAFETY MEASURES IMPLEMENTED. WILL CONTINUE TO MONITOR THROUGHOUT SHIFT.
--- NOTE | 2017-12-23 19:12 | NUR ---
MS RN CLOSING NOTES . PT IN BED A&OX3. ON O2 2L VIA NC. HAS G-TUBE FEEDING Q4H, REDNESS AROUND THE GT SITE. ISOLATION PRECAUTIONS IN PLACE FOR MRSA NARES AND TO RULE OUT TB.HOB ELEVATED WITH ASPIRATION PRECAUTIONS AND SAFETY PRECAUTIONS IN PLACE. BED AT LOWEST AND LOCKED POSITION WITH SIDE RAILS UP X2CALL LIGHT PLACED WITHIN REACH. INSTRUCTED TO CALL FOR HELP.ENDORSED TO PM NURSE FOR MARIE.
[2017-12-23 20:00] VITALS: BP 100/74
[2017-12-23] MEDS: ZOLPIDEM TARTRATE 5 MG TABLET PO PRN (21:24)
[2017-12-24] MEDS: ACETYLCYSTEINE 10% SOLN 400 MG/4 ML VIAL NEB SCH ×4 (00:29→23:30)
[2017-12-24] MEDS: ALBUTEROL HALF STRENGTH 1.25 MG/3 ML VIAL.NEB NEB SCH ×6 (00:30→20:45)
[2017-12-24] MEDS: IPRATROPIUM NEB FS 0.5 MG/2.5 ML AMPUL.NEB NEB SCH ×6 (00:30→20:45)
[2017-12-24] MEDS: JEVITY 1.2 CAL 1,000 ML BOTTLE GT SCH ×6 (03:05→22:30)
[2017-12-24] MEDS: MORPHINE SULFATE INJ 2 MG/ML DISP.SYRIN IV PRN ×2 (05:47→10:06)
--- NOTE | 2017-12-24 06:00 | NUR ---
MS RN CLOSING NOTES ASLEEP AND EASILY AWAKEN, STABLE, 3LPM VIA NC 02 SAT 95% NOT IN DISTRESS. TOLERATING BOLUS FEEDING. RESPIRATION EVEN AND UNLABORED. KEPT CLEAN AND DRY AND COMFORTABLE, ALL NURSING CARE RENDERED. NEEDS ATTENDED AND ANTICIPATED. GOOD SKIN CARE. ON LOW BED AT ALL TIMES TO ENSURE SAFETY. SAFE HAZARD FREE ENVIRONMENT PROVIDED. CALL LIGHT WITHIN EASY TO REACH. WILL ENDORSE NEXT SHIFT CONTINUITY OF CARE.
[2017-12-24 06:40] VITALS: BP 153/100
[2017-12-24 08:00] VITALS: BP 93/62
[2017-12-24] MEDS: MULTIVITAMINS,THERAGRAN 1 UDTAB TABLET GT SCH (09:23)
[2017-12-24] MEDS: ACETAMINOPHEN 325 MG TABLET PO PRN (09:23)
[2017-12-24] MEDS: DOCUSATE SODIUM 100 MG CAPSULE PO SCH (09:23)
[2017-12-24] MEDS: NYSTATIN (PYXIS) 500,000 UNIT/5 ML ORAL.SUSP PO SCH ×4 (09:23→20:40)
[2017-12-24] MEDS: FLUCONAZOLE (100 MG) 100 MG TABLET PO SCH (09:23)
[2017-12-24] MEDS: LEVOTHYROXINE SODIUM 75 MCG TABLET GT SCH (09:25)
[2017-12-24] MEDS: AZELASTINE NASAL SPRAY 30 ML BOTTLE NS SCH (09:26)
[2017-12-24] MEDS: FLUTICASONE PROPIONATE 16 GM BOTTLE NS SCH (09:26)
[2017-12-24] MEDS: MUPIROCIN OINT 2% 22 GM TUBE SCH ×2 (09:27→20:39)
[2017-12-24 10:02] LABS: BASOPHILS % (AUTO) 0.1 % (0.0-2.0); EOSINOPHILS % (AUTO) 0.9 % (0.0-6.0); HEMATOCRIT 40 % (39-51); HEMOGLOBIN 12.8 g/dL (13.5-17.5); LYMPHOCYTES # (AUTO) 0.6 /CMM (0.8-4.8); LYMPHOCYTES % (AUTO) 7.1 % (20.0-44.0); MEAN CORPUSCULAR HGB CONC 32 g/dl (31.0-36.0); MEAN CORPUSCULAR VOLUME 110 fL (80-96); MONOCYTES # (AUTO) 0.6 /CMM (0.1-1.30); MONOCYTES % (AUTO) 7.4 % (2.0-12.0); NEUTROPHILS # (AUTO) 6.8 /CMM (1.8-8.9); NEUTROPHILS % (AUTO) 84.5 % (43.0-81.0); PLATELET COUNT (AUTO) 174 /CMM (150-450); RDW COEFFICIENT OF VARIATION 15.7 (11.5-15.0); RED BLOOD CELL COUNT(AUTO) 3.63 MIL/uL (4.5-6.0)
[2017-12-24 10:06] LABS: CALCIUM, SERUM 8.6 mg/dL (8.5-10.1); CREATININE 0.6 mg/dL (0.6-1.3); POTASSIUM 4.1 mmol/L (3.5-5.1)
[2017-12-24 12:00] VITALS: BP 106/75
[2017-12-24] MEDS ORDERED: VANCOMYCIN 500 MG in IV D5W 100 ML IV SCH (13:00)
[2017-12-24] MEDS: LEVOFLOXACIN (500MG) 500 MG TABLET PO SCH (14:28)
[2017-12-24 16:00] VITALS: BP_SYST 129; BP_SYST 171; BP_DIAS 101; BP_DIAS 87
[2017-12-24] MEDS: HYDROCODONE/APAP 10/325MG 1 EA TABLET PO PRN ×2 (16:20→22:28)
--- NOTE | 2017-12-24 19:30 | NUR ---
RN MS OPENING NOTES RECEIVED PATIENT IN BED AWAKE. ALERT AND ORIENTED X3. SPEECH UNCLEAR BUT ABLE TO MAKE NEEDS KNOWN. BREATHING EVEN AND UNLABORED. NO SOB NOTED. ON 2L OXYGEN VIA NC. NO COMPLAINTS OF PAIN OR DISCOMFORT AT THE MOMENT. SKIN DRY AND WARM TO TOUCH. AFEBRILE. IV ACCESS IN TACT AND PATENT. PATIENTS GTUBE IN PLACE AND PATENT. PATIENT REMAINS ON AIRBORNE ISOLATION. ALL OTHER NEEDS ATTENDED TO. SAFETY MEASURES IN PLACE. CALL LIGHT WITHIN REACH. WILL CONTINUE TO MONITOR.
[2017-12-24 20:00] VITALS: BP 116/81
[2017-12-24] MEDS: DOXYCYCLINE HYCLATE (100 MG) 100 MG TABLET PO SCH (20:40)
[2017-12-24] MEDS: ZOLPIDEM TARTRATE 5 MG TABLET PO PRN (22:27)
[2017-12-25] MEDS: MORPHINE SULFATE INJ 2 MG/ML DISP.SYRIN IV PRN ×2 (00:39→22:20)
[2017-12-25] MEDS: ALBUTEROL HALF STRENGTH 1.25 MG/3 ML VIAL.NEB NEB SCH ×5 (01:30→20:02)
[2017-12-25] MEDS: IPRATROPIUM NEB FS 0.5 MG/2.5 ML AMPUL.NEB NEB SCH ×5 (01:30→20:02)
[2017-12-25] MEDS: JEVITY 1.2 CAL 1,000 ML BOTTLE GT SCH ×5 (02:42→17:46)
[2017-12-25 04:00] VITALS: BP 102/69
[2017-12-25 06:47] LABS: CALCIUM, SERUM 8.3 mg/dL (8.5-10.1); CREATININE 0.5 mg/dL (0.6-1.3); POTASSIUM 4.4 mmol/L (3.5-5.1)
--- NOTE | 2017-12-25 06:56 | NUR ---
RN MS CLOSING NOTES PATIENT IN BED AWAKE. ALERT AND ORIENTED X3. SPEECH UNCLEAR BUT ABLE TO MAKE NEEDS KNOWN. BREATHING EVEN AND UNLABORED. NO SOB NOTED. ON 2L OXYGEN VIA NC. NO COMPLAINTS OF PAIN OR DISCOMFORT AT THE MOMENT. SKIN DRY AND WARM TO TOUCH. AFEBRILE. IV ACCESS IN TACT AND PATENT - REMAINED TKO. PATIENTS GTUBE IN PLACE AND PATENT - NO RESIDUAL THROUGHOUT SHIFT. PATIENT REMAINS ON AIRBORNE ISOLATION. ALL OTHER NEEDS ATTENDED TO. KEPT CLEAN, DRY AND COMFORTABLE. SAFETY MEASURES IN PLACE. CALL LIGHT WITHIN REACH. WILL ENDORSE TO ONCOMING NURSE FOR CONTINUITY OF CARE.
--- NOTE | 2017-12-25 07:15 | NUR ---
MS/RN OPENING NOTE PATIENT IS RECEIVED IN BED. ALERT AND ORIENTED X3 AND WITH UNCLEAR SPEECH. ABLE TO MAKE NEEDS KNOWN VERBALLY. DENIES PAIN. PATIENT RECEIVING OXYGEN AT 2L/MIN VIA NASAL CANNULA. DENIES SOB. PATIENT IN NO APPARENT DISTRESS. G TUBE IN PLACE WITH NO RESIDUAL. ABDOMEN SOFT AND [id number]. LEFT FOOT G 20 PATENT AND SALINE LOCKED. ON ISOLATION TO RULE OUT TB AND ON ISOLATION OF MRSA OF NARES AND GT SITE. BED LOW AND LOCKED. SIDE RAILS UP X3. CALL LIGHT WITHIN REACH. WILL CONTINUE TO MONITOR.
[2017-12-25 08:00] VITALS: BP 106/71
[2017-12-25] MEDS: ACETYLCYSTEINE 10% SOLN 400 MG/4 ML VIAL NEB SCH ×3 (08:46→23:30)
[2017-12-25] MEDS: LEVOTHYROXINE SODIUM 75 MCG TABLET GT SCH (09:15)
[2017-12-25] MEDS: DOCUSATE SODIUM 100 MG CAPSULE PO SCH (09:16)
[2017-12-25] MEDS: FLUCONAZOLE (100 MG) 100 MG TABLET PO SCH (09:16)
[2017-12-25] MEDS: NYSTATIN (PYXIS) 500,000 UNIT/5 ML ORAL.SUSP PO SCH ×4 (09:16→21:14)
[2017-12-25] MEDS: DOXYCYCLINE HYCLATE (100 MG) 100 MG TABLET PO SCH ×2 (09:16→21:15)
[2017-12-25] MEDS: MULTIVITAMINS,THERAGRAN 1 UDTAB TABLET GT SCH (09:16)
[2017-12-25] MEDS: MUPIROCIN OINT 2% 22 GM TUBE SCH ×2 (09:16→21:39)
[2017-12-25] MEDS: FLUTICASONE PROPIONATE 16 GM BOTTLE NS SCH (09:17)
[2017-12-25] MEDS: ACETAMINOPHEN 325 MG TABLET PO PRN ×2 (09:45→15:45)
[2017-12-25] MEDS: AZELASTINE NASAL SPRAY 30 ML BOTTLE NS SCH (09:46)
[2017-12-25 11:00] VITALS: BP 126/67
--- NOTE | 2017-12-25 11:11 | NUR ---
WOUND CARE CONSULT: PT PRESENTS WITH RASH AND PEELING SKIN TO SACRAL/BUTTOCKS AREA. RECOMMENDATIONS MADE FOR SKIN CARE AND PROTECTION. DISCUSSED WITH NURSING STAFF. PT IS VERY THIN AND BONY. WILL SEE PRN. VERDUZCO IN AGREEMENT WITH PLAN OF CARE. CURRENT MARCO SCORE IS 20. Addendum: 12/25/17 at 1115 by LOUIS STRICKLAND WNDNU Amended: Links added.
[2017-12-25 13:00] VITALS: BP 126/78
[2017-12-25] MEDS: HYDROCODONE/APAP 10/325MG 1 EA TABLET PO PRN ×2 (13:40→21:15)
[2017-12-25] MEDS: CLOTRIMAZOLE 1% 15 GM TUBE TP SCH ×2 (13:44→17:22)
--- NOTE | 2017-12-25 15:10 | NUR ---
RT PT RECEIVED ON NASAL CANNULA ON 2 LPM O2. NO SIGNS OF RESP DISTRESS/SOB NOTED. ORDERED TXS GIVEN. AMBUBAG AT BEDSIDE. WILL CONTINUE TO MONITOR.
[2017-12-25] MEDS: LEVOFLOXACIN (500MG) 500 MG TABLET PO SCH (15:19)
--- NOTE | 2017-12-25 15:46 | NUR ---
MS/RN NOTE PATIENT COMPLIANT OF GENERALIZED PAIN 05/27 AND REQUESTED TYLENOL 650 MP. TYLENOL 650MG VIA GT GIVEN. NO ADVERSE REACTIONS NOTED AT THIS TIME.
[2017-12-25 16:00] VITALS: BP 122/84
--- NOTE | 2017-12-25 17:58 | NUR ---
MS/RN CLOSING NOTE PATIENT ALERT AND ORIENTED X3. PATIENT HAS UNCLEAR SPEECH WHICH IS PATIENT`S USUAL SPEECH PATTERN. PATIENT IS RECEIVING OXYGEN AT 2L/MIN VIA NASAL CANNULA. DENIES SOB AT THIS TIME. RESPIRATION REGULAR AND UNLABORED. DENIES PAIN. AT THIS TIME. LEFT FOOT G 20 PATENT AND SALINE LOCKED. ABDOMEN SOFT AND NON-DISTENDED. G TUBE IN PLACE. NO RESIDUAL NOTED. PATIENT RECEIVED BOLUS FEEDING THREE TIMES DURING THE SHIFT (240 ML EACH TIME) AND THE PATIENT TOLERATED FEEDING WELL. TREATMENT WITH MEPILEX APPLIED ON SACRAL RASH. GOOD AND GENTLE SKIN CARE RENDERED. KEPT CLEAN, DRY AND COMFORTABLE. ALL NEEDS ATTENDED AND ANTICIPATED. CALL LIGHT WITHIN REACH. WILL ENDORSE TO MECHANICAL APPLICATIONS ENGINEER.
[2017-12-25 20:00] VITALS: BP 139/99
[2017-12-25] MEDS: ZOLPIDEM TARTRATE 5 MG TABLET PO PRN (21:15)
[2017-12-26] MEDS: ALBUTEROL HALF STRENGTH 1.25 MG/3 ML VIAL.NEB NEB SCH ×2 (00:47→07:41)
[2017-12-26] MEDS: IPRATROPIUM NEB FS 0.5 MG/2.5 ML AMPUL.NEB NEB SCH ×2 (00:47→07:41)
--- NOTE | 2017-12-26 00:47 | NUR ---
BREATHING TX NOT GIVEN. PT REQUESTED NOT TO WAKE HIM UP IF SLEEPING. WILL CONTINUE TO MONITOR.
[2017-12-26 04:00] VITALS: BP 97/68
[2017-12-26] MEDS: MORPHINE SULFATE INJ 2 MG/ML DISP.SYRIN IV PRN (04:14)
[2017-12-26] MEDS: LEVOTHYROXINE SODIUM 75 MCG TABLET GT SCH (06:32)
[2017-12-26] MEDS: HYDROCODONE/APAP 10/325MG 1 EA TABLET PO PRN (06:32)
[2017-12-26 07:01] LABS: CALCIUM, SERUM 8.9 mg/dL (8.5-10.1); CREATININE 0.5 mg/dL (0.6-1.3); POTASSIUM 4.3 mmol/L (3.5-5.1)
--- NOTE | 2017-12-26 07:15 | NUR ---
MS/RN INITIAL NOTES RECEIVED PT IN BED, A/O X3. NO C/O PAIN AT THIS TIME. ON 2L O2 VIA NC, TOLERATING WELL. GT CLAMPED AND IN PLACED. WITH INTACT AND PATENT LFOOT G20 SL. ISOLATION PRECAUTION MAINTAINED. AWAITING CLEARANCE FROM INFECTION CONTROL. [employer] (-). PER ENDORSEMENT, PT IS FOR D/C TODAY. SAFETY MEASURES IN PLACED. CALL LIGHT WITHIN REACH. WILL CONT TO MONITOR
[2017-12-26] MEDS: ACETYLCYSTEINE 10% SOLN 400 MG/4 ML VIAL NEB SCH (07:41)
[2017-12-26 08:00] VITALS: BP 119/75
[2017-12-26] MEDS: NYSTATIN (PYXIS) 500,000 UNIT/5 ML ORAL.SUSP PO SCH (08:09)
[2017-12-26] MEDS: MULTIVITAMINS,THERAGRAN 1 UDTAB TABLET GT SCH (08:10)
[2017-12-26] MEDS: FLUCONAZOLE (100 MG) 100 MG TABLET PO SCH (08:10)
[2017-12-26] MEDS: DOXYCYCLINE HYCLATE (100 MG) 100 MG TABLET PO SCH (08:10)
[2017-12-26] MEDS: DOCUSATE SODIUM 100 MG CAPSULE PO SCH (08:10)
[2017-12-26] MEDS: CLOTRIMAZOLE 1% 15 GM TUBE TP SCH (08:35)
[2017-12-26] MEDS: MUPIROCIN OINT 2% 22 GM TUBE SCH (08:35)
[2017-12-26] MEDS: FLUTICASONE PROPIONATE 16 GM BOTTLE NS SCH (08:35)
[2017-12-26] MEDS: AZELASTINE NASAL SPRAY 30 ML BOTTLE NS SCH (08:35)
--- NOTE | 2017-12-26 09:28 | NUR ---
RN NOTES REPORT GIVEN TO MITCHELL WYMAN RN
--- NOTE | 2017-12-26 09:40 | NUR ---
RN NOTES D/C INSTRUCTIONS GIVEN TO PT, PT VERBALIZED UNDERSTANDING. OFFERED FLU VACCINE BEFORE D/C PT REFUSED. EXPLAINED RISKS AND BENEFITS. PT STRONGLY REFUSED.
[2017-12-26] MEDS: JEVITY 1.2 CAL 1,000 ML BOTTLE GT SCH (10:25)
[2017-12-26] MEDS ORDERED: IPRA0.2S9 NEB (10:45)
[2017-12-26] MEDS ORDERED: FLUC100T8 PO (10:45)
[2017-12-26] MEDS ORDERED: ALBU1.25 NEB (10:45)
[2017-12-26] MEDS ORDERED: DOXY100T2 PO (10:45)
[2017-12-26] MEDS ORDERED: LEVO500T2 PO (10:45)
[2017-12-26] MEDS ORDERED: ACET1OOV6 NEB (10:45)
[2017-12-26 12:00] VITALS: BP 177/111
--- NOTE | 2017-12-26 12:05 | NUR ---
RN NOTES EMT CAME, BP CHECKED ON 171/111. NOTIFIED DR IGNACIO, RE: CURRENT BP. MD ORDERED: GIVE HYDRALAZINE 25MG IV X1 NOW, THEN RECHECK. OK TO D/C IF BP WNL. ORDERS NOTED AND CARRIED OUT
[2017-12-26] MEDS ORDERED: hydrALAZINE HCL IV 20 MG VIAL IV STA (12:13)
[2017-12-26 12:26] VITALS: BP 171/111
--- NOTE | 2017-12-26 12:51 | NUR ---
RN NOTES RECHECKED BP: 99/72. D/C PT IN STABLE CONDITION VIA AMBULANCE IN [facility]. PER PT, CREDIT CARD ON THE BELONGINGS WAS ALREADY TAKEN/CLAIMED BY HIS NIECE. D/C LFOOT IV. PRESSURE DRESSING PLACED. NO BLEEDING NOTED. SAFETY MEASURES OBSERVED AT ALL TIMES. REPORT GIVEN TO RECORDING STUDIO INTERNSHIP. D/C
== END 2017-12-26 12:50 | DRG 393 ==
LOC: ER 22:49 → TELE 12-20 03:43 → MEDSG1 12-21 18:17
PROVIDERS: ADMIT Internal Medicine; ATTEND Internal Medicine
DX: K94.22 Gastrostomy infection (principal); E43 Unspecified severe protein-calorie malnutrition; N17.0 Acute kidney failure with tubular necrosis; F11.20 Opioid dependence, uncomplicated; Z68.1 Body mass index [BMI] 19.9 or less, adult; J84.9 Interstitial pulmonary disease, unspecified; K57.92 Diverticulitis of intestine, part unspecified, without perforation or abscess without bleeding; J96.11 Chronic respiratory failure with hypoxia; J96.12 Chronic respiratory failure with hypercapnia; L03.311 Cellulitis of abdominal wall; G90.8 Other disorders of autonomic nervous system; E86.0 Dehydration; R29.6 Repeated falls; Z88.8 Allergy status to other drugs, medicaments and biological substances; Z79.899 Other long term (current) drug therapy; R13.10 Dysphagia, unspecified; Z87.01 Personal history of pneumonia (recurrent); Z85.810 Personal history of malignant neoplasm of tongue; S03.02XA Dislocation of jaw, left side, initial encounter; Z91.81 History of falling; G89.4 Chronic pain syndrome; E03.9 Hypothyroidism, unspecified; I10 Essential (primary) hypertension; W18.30XA Fall on same level, unspecified, initial encounter; Z22.322 Carrier or suspected carrier of Methicillin resistant Staphylococcus aureus; J42 Unspecified chronic bronchitis; B96.1 Klebsiella pneumoniae [K. pneumoniae] as the cause of diseases classified elsewhere; B95.62 Methicillin resistant Staphylococcus aureus infection as the cause of diseases classified elsewhere; Y83.3 Surgical operation with formation of external stoma as the cause of abnormal reaction of the patient, or of later complication, without mention of misadventure at the time of the procedure; Y82.9 Unspecified medical devices associated with adverse incidents; Y92.129 Unspecified place in nursing home as the place of occurrence of the external cause; B37.9 Candidiasis, unspecified
CPT/HCPCS: 36415; 36600; 70450-TC; 70486-TC; 71045-TC; 71250-TC; 72125-TC; 80048-TC; 80076-TC; 80202-TC; 80305; 81000-TC; 82803-TC; 82962-TC; 83735-TC; 84484-TC; 85025-TC; 85730-TC; 87070-TC; 87081-TC; 87086-TC; 87116; 87186-TC; 87206; 93307-TC; 94640-TC; 94799-TC; 97116-TC; A4606; A6402; J0360; J0696; J2270; J2405; J3370; J3490; J7030; J7050; J7060; Z7610